=== PATIENT | male | born 1960 | race Caucasian/White ===

== ENCOUNTER 2018-03-14 11:07 | Emergency (ER) | payer BC ==
[2018-03-14] MEDS ORDERED: ONDANSETRON HCL IV 4 MG/2 ML VIAL IVP ONE (11:41)
[2018-03-14] MEDS ORDERED: MORPHINE SULFATE 10 MG/ML VIAL IVP ONE (11:41)
--- NOTE | 2018-03-14 11:45 | Emergency Department Record ---
History of Present Illness - General Chief Complaint: Fall Injury Stated Complaint: FALL/BACK PAIN Time Seen by Provider: 03/14/18 11:33 Source: Patient Mode of Arrival: Ambulatory Limitations: No limitations - History of Present Illness Initial Comments: The patient is here due to significant R posterior Rib pain after falling 14 feet out of a tree stand 5 days ago. He thinks he did hit some branches on the way down and landed on his back. Since he has had severe R rib pain. The patient denies any CP, SOB, AP, RAMON, hematuria, or neck pain. He was seen at an UC 4 days ago and another ER 2 days ago but had no xrays taken. Since the pain seems to be worse. Onset/Timin -: Days(s) Fall From: From height (distance) Fall Witnessed: No Loss of Consciousness: Unsure Prolonged Down Time?: No Symptoms Prior to Fall: None Associated Symptoms: Headache - [place] Coma Scale Eye Response: (4) Open spontaneously Motor Response: (6) Obeys commands Verbal Response: (5) Oriented [place] Total: 15 - Related Data Home Medications Medication Instructions Recorded Confirmed Last Taken Allopurinol 300 mg PO DAILY 03/14/18 03/14/18 Unknown Atenolol 50 mg PO DAILY 03/14/18 03/14/18 Unknown Cyclobenzaprine HCl [Flexeril] 10 mg PO ASDIR 03/14/18 03/14/18 Unknown Previous Rx's Medication Instructions Recorded Hydrocodone/Acetaminophen [[place] 1 - 2 each PO .EVERY 4-6 HRS PRN 03/14/18 5-325 Tablet] #15 tablet Allergies Allergy/AdvReac Type Severity Reaction Status Date / Time No Known Drug Allergies Allergy Verified 03/14/18 11:16 Travel Screening - Travel/Exposure Within Last 30 Days Have you traveled within the last 30 days?: No Review of Systems Constitutional: Denies: Chills, Fever Eyes: Denies: Eye discharge ENT: Denies: Congestion Respiratory: Denies: Cough, Dyspnea Cardiovascular: Denies: Arrhythmia Endocrine: Denies: Fatigue Gastrointestinal: Denies: Abdominal pain Genitourinary: Denies: Dysuria Musculoskeletal: Reports: Back pain. Denies: Arthralgia Skin: Denies: Bruising Past Medical History - SOCIAL HISTORY Smoking Status: Never smoker Alcohol Use: None Drug Use: None - RESPIRATORY Hx Respiratory Disorders: No - CARDIOVASCULAR Hx Cardio Disorders: Yes Hx Hypertension: Yes - NEURO Hx Neuro Disorders: No - GI Hx GI Disorders: No - Hx Genitourinary Disorders: No - ENDOCRINE Hx Endocrine Disorders: No - MUSCULOSKELETAL Hx Musculoskeletal Disorders: Yes Hx Arthritis: Yes Hx Gout: Yes - PSYCH Hx Psych Problems: No - HEMATOLOGY/ONCOLOGY Hx Hematology/Oncology Disorders: No Family Medical History Any Significant Family History?: Yes Hx Cancer: Father *Cancer Comment: Father-colon cancer Physical Exam - General General Appearance: Alert, Oriented x3, Cooperative, No acute distress - Head Head exam: Atraumatic, Normocephalic, Normal inspection - Eye Eye exam: Normal appearance, PERRL, EOMI - Neck Neck exam: Normal inspection, Full ROM. negative: Tenderness - Respiratory Respiratory exam: Normal lung sounds bilaterally, Chest wall tenderness. negative: Respiratory distress - Cardiovascular Cardiovascular Exam: Regular rate, Normal rhythm, Normal heart sounds - GI/Abdominal GI/Abdominal exam: Soft, Normal bowel sounds. negative: Tenderness - Extremities Extremities exam: Normal inspection, Full ROM, Normal capillary refill. negative: Tenderness - Back Back exam: Reports: Paraspinal tenderness. Denies: Normal inspection, Vertebral tenderness Image of Body Front/Back: 1 - Area of bruising and serious tenderness. 2 - Area of mild bruising and very mild tenderness. - Neurological Neurological exam: Alert, Normal gait. negative: Abnormal gait, Motor sensory deficit Course Vital Signs 03/14/18 11:12 Temperature 98.1 F Pulse Rate 81 Respiratory 18 Rate Blood Pressure 166/105 Pulse Ox 95 - Reevaluation(s) Reevaluation #1: The patient is doing very well at this time. I did discuss the issues due to the multiple rib fractures with him and the need for F/U. His pain is much better and he is ready for discharge. 03/14/18 14:25 Medical Decision Making - Data Complexity MDM Data: Labs Ordered and/or Reviewed, X-Ray Ordered and/or Reviewed - Lab Data Result diagrams: 03/14/18 11:45 03/14/18 11:45 - Radiology Data Radiology results: Report reviewed (Head CT: Neg Chest CT: 3 lower R rib fx' s T9-11. Abd/pelvis CT: neg.) Disposition Disposition: Discharge Clinical Impression: Ribs, multiple fractures Qualifiers: Encounter type: initial encounter Fracture type: closed Laterality: right Qualified Code(s): S22.41XA - Multiple fractures of ribs, right side, initial encounter for closed fracture Disposition: Home, Self-Care Condition: (2) Stable Instructions: Rib Fracture (ED) Additional Instructions: Please see your family doctor later this week due to the multiple rib fractures. Please take Motrin and [place] for pain. Return to the ER for any worsening pain, fever, or any trouble breathing. Prescriptions: Hydrocodone/Acetaminophen [[place] 5-325 Tablet] 1 - 2 each PO .EVERY 4-6 HRS PRN #15 tablet PRN Reason: Pain Forms: Patient Portal Access Time of Disposition: 14:23 Quality - Quality Measures Quality Measures: N/A - Blood Pressure Screening View Details: Yes Does Patient Have Any of the Following: Active Dx of HTN Blood Pressure Classification: Hypertensive Reading Systolic Measurement: 166 Diastolic Measurement: 105 Screening for High Blood Pressure: Patient Exclusion, Hx of HTN [G9744]
[2018-03-14 11:53] LABS: HEMATOCRIT 40.3 % (42.0-52.0); HEMOGLOBIN 13.4 gm/dl (14.0-18.0); MEAN CELL VOLUME 98.8 fl (81-97); MEAN CORPUSCULAR HEMOGLOBIN 32.8 pg (27-33); MEAN CORPUSCULAR HGB CONC 33.3 g/dl (32-36); MEAN PLATELET VOLUME 9.4 fl (7.4-10.4); PLATELET COUNT 191 K/uL (130-400); RED BLOOD COUNT 4.08 M/uL (4.40-5.70); RED CELL DISTRIBUTION WIDTH 13.1 % (11.5-14.5)
[2018-03-14 12:06] LABS: BLOOD UREA NITROGEN 17 mg/dL (6-20); CREATININE 0.9 mg/dL (0.7-1.2); EST GLOMERULAR FILTRATION RATE > 60 mL/min; TOTAL PROTEIN 6.7 g/dL (6.6-8.7)
[2018-03-14 12:08] LABS: GLUCOSE,RANDOM 107 mg/dL (74-109)
[2018-03-14 12:11] LABS: ALBUMIN 3.9 g/dL (4.0-5.0); ALKALINE PHOSPHATASE 81 U/L (40-129); ALT/SGPT 15 U/L (<41); AST/SGOT 17 U/L (10.0-50.0); LIPASE 13 U/L (13-60)
[2018-03-14 12:12] LABS: BILIRUBIN,DIRECT < 0.2 mg/dL (0-0.3)
[2018-03-14 12:48] LABS: URINE APPEARANCE CLEAR; URINE BILIRUBIN NEGATIVE (NEGATIVE); URINE BLOOD NEGATIVE (NEGATIVE); URINE COLOR YELLOW; URINE GLUCOSE (UA) NEGATIVE (NEGATIVE); URINE KETONE NEGATIVE (NEGATIVE); URINE LEUKOCYTE ESTERASE NEGATIVE (NEGATIVE); URINE NITRITE NEGATIVE (NEGATIVE); URINE PROTEIN NEGATIVE (NEGATIVE); URINE UROBILINOGEN 0.2 E.U./dL (0.20 - 1.00)
[2018-03-14] MEDS ORDERED: HYDROCODONE/APAP 5/325MG TABLET PO ONE (14:34)
--- NOTE | 2018-03-14 14:37 | Emergency Department Record ---
History of Present Illness - General Chief Complaint: Fall Injury Stated Complaint: FALL/BACK PAIN Time Seen by Provider: 03/14/18 11:33 Source: Patient Mode of Arrival: Ambulatory - History of Present Illness Onset/Timin -: Days(s) Fall From: From height (distance) Fall Witnessed: No Loss of Consciousness: Unsure Prolonged Down Time?: No Symptoms Prior to Fall: None Associated Symptoms: Headache - [place] Coma Scale Eye Response: (4) Open spontaneously Motor Response: (6) Obeys commands Verbal Response: (5) Oriented [place] Total: 15 - Related Data Home Medications Medication Instructions Recorded Confirmed Last Taken Allopurinol 300 mg PO DAILY 03/14/18 03/14/18 Unknown Atenolol 50 mg PO DAILY 03/14/18 03/14/18 Unknown Cyclobenzaprine HCl [Flexeril] 10 mg PO ASDIR 03/14/18 03/14/18 Unknown Previous Rx's Medication Instructions Recorded Hydrocodone/Acetaminophen [[place] 1 - 2 each PO .EVERY 4-6 HRS PRN 03/14/18 5-325 Tablet] #15 tablet Allergies Allergy/AdvReac Type Severity Reaction Status Date / Time No Known Drug Allergies Allergy Verified 03/14/18 11:16 Travel Screening - Travel/Exposure Within Last 30 Days Have you traveled within the last 30 days?: No Review of Systems Constitutional: Denies: Chills, Fever Eyes: Denies: Eye discharge ENT: Denies: Congestion Respiratory: Denies: Cough, Dyspnea Cardiovascular: Denies: Arrhythmia Endocrine: Denies: Fatigue Gastrointestinal: Denies: Abdominal pain Genitourinary: Denies: Dysuria Musculoskeletal: Reports: Back pain. Denies: Arthralgia Skin: Denies: Bruising Past Medical History - SOCIAL HISTORY Smoking Status: Never smoker Alcohol Use: None Drug Use: None - RESPIRATORY Hx Respiratory Disorders: No - CARDIOVASCULAR Hx Cardio Disorders: Yes Hx Hypertension: Yes - NEURO Hx Neuro Disorders: No - GI Hx GI Disorders: No - Hx Genitourinary Disorders: No - ENDOCRINE Hx Endocrine Disorders: No - MUSCULOSKELETAL Hx Musculoskeletal Disorders: Yes Hx Arthritis: Yes Hx Gout: Yes - PSYCH Hx Psych Problems: No - HEMATOLOGY/ONCOLOGY Hx Hematology/Oncology Disorders: No Family Medical History Any Significant Family History?: Yes Hx Cancer: Father *Cancer Comment: Father-colon cancer Physical Exam - General Limitations: No limitations Course Vital Signs 03/14/18 03/14/18 11:12 13:01 Temperature 98.1 F Pulse Rate 81 Pulse Rate [ 77 Pulse Ox Probe] Respiratory 18 18 Rate Blood Pressure 166/105 Blood Pressure 137/90 [Right Arm] Pulse Ox 95 95 - Reevaluation(s) Reevaluation #1: I did discuss the fact that there does appear to be fx's in 2 places on Rib 10 and 11. I also did discuss the Abd CT report that has the umbilical hernia and the need to see his PCP for it. I also will refer the patient to Dr. Becker for the Umbilical hernia. 03/14/18 14:35 Medical Decision Making - Lab Data Result diagrams: 03/14/18 11:45 03/14/18 11:45 Lab Results 03/14/18 03/14/18 03/14/18 Range/Units 11:45 11:45 12:40 WBC 5.0 (4.2-12.2) K/uL RBC 4.08 L (4.40-5.70) M/uL Hgb 13.4 L (14.0-18.0) gm/dl Hct 40.3 L (42.0-52.0) % MCV 98.8 H (81-97) fl MCH 32.8 (27-33) pg MCHC 33.3 (32-36) g/dl RDW 13.1 (11.5-14.5) % Plt Count 191 (130-400) K/uL MPV 9.4 (7.4-10.4) fl Neutrophils % 57.0 (47-80) % Eosinophils % Not Reportable Basophils % Not Reportable Lymphocytes 35.0 (16-45) % Monocytes 5.0 (0-9) % Eosinophil Count 4.0 (0-6) % Sodium 134 L (136-145) mmol/L Potassium 4.3 (3.4-4.5) mmol/L Chloride 93 L (98-107) mmol/L Carbon Dioxide 25.0 (22-29) mmol/L Anion Gap 16.0 (7-16) BUN 17 (6-20) mg/dL Creatinine 0.9 (0.7-1.2) mg/dL Estimated GFR > 60 mL/min Random Glucose 107 (74-109) mg/dL Calcium 9.6 (8.6-10.0) mg/dL Total Bilirubin 0.60 (0.2-1.0) mg/dL Direct Bilirubin < 0.2 (0-0.3) mg/dL AST 17 (10.0-50.0) U/L ALT 15 (<41) U/L Alkaline Phosphatase 81 (40-129) U/L Total Protein 6.7 (6.6-8.7) g/dL Albumin 3.9 L (4.0-5.0) g/dL Lipase 13 (13-60) U/L Urine Color Yellow Urine Appearance Clear Urine pH 6.0 (5.0-8.0) Ur Specific [place] 1.020 (1.002-1.030) Urine Protein Negative (NEGATIVE) Urine Glucose (UA) Negative (NEGATIVE) Urine Ketones Negative (NEGATIVE) Urine Blood Negative (NEGATIVE) Urine Nitrite Negative (NEGATIVE) Urine Bilirubin Negative (NEGATIVE) Urine Urobilinogen 0.2 (0.20 - 1.00) E.U./dL Ur Leukocyte Esterase Negative (NEGATIVE) Disposition Clinical Impression: Ribs, multiple fractures Qualifiers: Encounter type: initial encounter Fracture type: closed Laterality: right Qualified Code(s): S22.41XA - Multiple fractures of ribs, right side, initial encounter for closed fracture Disposition: Home, Self-Care Condition: (2) Stable Instructions: Rib Fracture (ED) Additional Instructions: Please see your family doctor later this week due to the multiple rib fractures. Please take Motrin and [place] for pain. Return to the ER for any worsening pain, fever, or any trouble breathing. Prescriptions: Hydrocodone/Acetaminophen [[place] 5-325 Tablet] 1 - 2 each PO .EVERY 4-6 HRS PRN #15 tablet PRN Reason: Pain Referrals: [facility] [Provider Group] Forms: Patient Portal Access Quality - Quality Measures Quality Measures: N/A - Blood Pressure Screening View Details: Yes Does Patient Have Any of the Following: Active Dx of HTN Blood Pressure Classification: Hypertensive Reading Systolic Measurement: 166 Diastolic Measurement: 105 Screening for High Blood Pressure: Patient Exclusion, Hx of HTN [G9744]
== END 2018-03-14 14:45 | disposition home or self-care (01) ==
LOC: ER 11:07
DX: S22.41XA Multiple fractures of ribs, right side, initial encounter for closed fracture (principal); S20.222A Contusion of left back wall of thorax, initial encounter; S20.221A Contusion of right back wall of thorax, initial encounter; R51 Headache; I10 Essential (primary) hypertension; W14.XXXA Fall from tree, initial encounter
CPT/HCPCS: 99284 ×2; 96374; 96375; 83690; 80076; 80048; 81003; 85027; 71250; 70450; 74176; J2405; J2270